=== PATIENT | female | born 1980 | race Caucasian/White ===

== ENCOUNTER 2018-08-27 22:01 | Emergency (ER) | payer OTHER ==
[~2018-08-27] VITALS: Ht 162.6 cm; Wt 72.6 kg
[~2018-08-27 22:01] MED LIST: AMOX500 PO; FERR160; FLUO20 PO; HYDACE5 PO; IBUP800 PO; LAMO25 PO; META400 PO; MULVITMINE; OMEP20ER; OTC AZO; OXYACE5T PO; PRED20 PO; PROP80ER PO; RXHYDACE PO; SERT50; VIIBRYD PO
[2018-08-27] MEDS ORDERED: KETO10 PO (23:44)
== END 2018-08-27 23:53 | disposition home or self-care (01) ==
LOC: ER 22:01
DX: S63.602A Unspecified sprain of left thumb, initial encounter (principal); X50.9XXA Other and unspecified overexertion or strenuous movements or postures, initial encounter; Z88.8 Allergy status to other drugs, medicaments and biological substances
CPT/HCPCS: 73140; 99283-25

== ENCOUNTER 2018-11-09 13:42 | Day surgery (SDC) | payer OTHER ==
[~2018-11-09] VITALS: Ht 162.6 cm; Wt 75.3 kg
[~2018-11-09 13:42] MED LIST changes: +KETO10 PO
--- NOTE | 2018-11-09 14:45 | NUR ---
11/09/18 1445 Shelby Machado UNABLE TO DRAW PRP IN PREOP. OR STAFF WILL ATTEMPT TO DRAW THE PRP IN THE OR.
--- NOTE | 2018-11-09 17:11 | NUR ---
11/09/18 1711 Zurdo Krishnan PT RESTING IN RECLINER, CHATTING WITH FAMILY MEMBER AT BEDSIDE. PT STATES SHE HAS 7/10 PAIN AT OPSITE. PT STATES SHE HAS A "HIGH TOLERANCE FOR PAIN MEDICATIONS." SEE VITALS FOR MEDICATION ADMINSTRATION PER ORDER FOR PAIN.
== END 2018-11-09 17:50 | disposition home or self-care (01) ==
LOC: ORSCSDS 13:42
PROVIDERS: Orthopaedic Surgery
PROC: 0RCL4ZZ Extirpation of Matter from Right Elbow Joint, Percutaneous Endoscopic Approach (ICD-10-PCS; principal; 2018-11-09 15:00)
DX: S52.044A Nondisplaced fracture of coronoid process of right ulna, initial encounter for closed fracture (principal); M65.9 Synovitis and tenosynovitis, unspecified
CPT/HCPCS: A9270-GY; J0171; J0690; J1100; J1885; J2250; J2405; J2704; J2710; J2795; J3010; J7120

== ENCOUNTER 2019-08-02 19:54 | Emergency (ER) | payer OTHER ==
[~2019-08-02] VITALS: Ht 162.6 cm; Wt 69.4 kg
[2019-08-02] MEDS ORDERED: BUPR150ER PO (20:02)
[2019-08-02 20:22] LABS: BASOPHILS ABSOLUTE AUTO 0.11 K/mm3 (0.00-0.23); BASOPHILS PERCENT AUTO 1 % (0-2); EOSINOPHILS ABSOLUTE AUTO 0.28 K/mm3 (0.00-0.68); EOSINOPHILS PERCENT AUTO 4 % (0-6); Hematocrit 40.4 % (33.0-51.0); Hemoglobin 13.2 g/dL (11.5-16.0); IMMATURE GRAN ABSOLUTE AUTO 0.02 K/mm3 (0.00-0.10); IMMATURE GRAN PERCENT AUTO 0 % (0-1); LYMPHOCYTES ABSOLUTE AUTO 2.93 K/mm3 (0.84-5.20); LYMPHOCYTES PERCENT AUTO 36 % (21-46); MONOCYTES ABSOLUTE AUTO 0.52 K/mm3 (0.16-1.47); MONOCYTES PERCENT AUTO 6 % (4-13); Mean Corpuscular HGB 32.8 pg (26.0-34.0); Mean Corpuscular HGB Conc 32.7 g/dL (31.5-36.5); Mean Corpuscular Volume 100 fL (80-100); Mean Platelet Volume 9.5 fL (9.1-12.4); NEUTROPHILS ABSOLUTE AUTO 4.24 K/mm3 (1.96-9.15); NEUTROPHILS PERCENT AUTO 52 % (41-73); Platelet Count 309 K/mm3 (150-400); RDW Coefficient Variation 11.9 % (11.7-14.2); RDW Standard Deviation 44.7 fL (35.1-46.3); Red Blood Cell Count 4.03 M/mm3 (3.80-5.20)
[2019-08-02 20:43] LABS: Alanine Aminotransfer (ALT/SGP 27 U/L (12-78); Albumin, Blood 4.2 g/dL (3.4-5.0); Albumin/Globulin Ratio 1.3 (0.8-1.8); Alk Phos 60 U/L (50-136); Anion Gap 7 mmol/L (6-16); Aspartate Aminotrans (AST/SGOT 19 U/L (12-37); Bilirubin, Total 0.4 mg/dL (0.1-1.0); Blood Urea Nitrogen 16 mg/dL (8-24); Bun/Creatinine Ratio 14.5 (12.0-20.0); CO2, Blood 27 mmol/L (21-32); Calcium, Blood 8.9 mg/dL (8.5-10.1); Chloride, Blood 105 mmol/L (98-108); Globulin, Blood 3.3 g/dL (2.2-4.0); Glomerular Filtration Rate 59 (60-); Glucose, Blood 113 mg/dL (70-99); Potassium, Blood 3.8 mmol/L (3.5-5.5); Sodium, Blood 139 mmol/L (136-145); Total Protein, Blood 7.5 g/dL (6.4-8.2); Troponin I <0.015 ng/mL (0.000-0.040)
== END 2019-08-03 00:44 | disposition home or self-care (01) ==
LOC: ER 19:54
PROVIDERS: Physician Assistant
DX: R07.2 Precordial pain (principal); M41.9 Scoliosis, unspecified; G43.909 Migraine, unspecified, not intractable, without status migrainosus; M54.9 Dorsalgia, unspecified; Z87.442 Personal history of urinary calculi; Z88.8 Allergy status to other drugs, medicaments and biological substances
CPT/HCPCS: 36415; 71046; 80053; 84484; 85025; 85379; 93005; 93010; 96374; 99284-25; J1885

== ENCOUNTER 2021-02-24 20:35 | Emergency (ER) | payer OTHER ==
[~2021-02-24] VITALS: Ht 162.6 cm; Wt 79.4 kg
[~2021-02-24 20:35] MED LIST changes: +BUPR150ER PO; +BUPROPION XL150 M1 PO; +CALCIUM 500 MG1 EACH; +CLON.5; +DHEA 10 MG TAB1 EAC1; +FURO20 PO; +IMITREX100 MG PO; +Klor-Con 1010 MEQ PO
[2021-02-24] MEDS ORDERED: PRED20 PO (22:26)
== END 2021-02-24 22:37 | disposition home or self-care (01) ==
LOC: ER 20:35
DX: M48.061 Spinal stenosis, lumbar region without neurogenic claudication (principal); G62.9 Polyneuropathy, unspecified; Z88.8 Allergy status to other drugs, medicaments and biological substances
CPT/HCPCS: 99283; J7512

== ENCOUNTER 2024-11-04 09:53 | Day surgery (SDC) | payer OTHER ==
[~2024-11-04] VITALS: Ht 162.6 cm; Wt 74.3 kg
[~2024-11-04 09:53] MED LIST changes: +ACET325 PO; +Bupivacaine 0.5% HCl 5 MG/ML 30MLVIAL ONE; +Clonazepam1 M1 PO; +Dexamethasone Sod Phos 10 MG/ML 1ML VIAL ONE; +IBUP200; +Lactated Ringer's 1,000 ML IV ONE; +Percocet 10-321 EACH PO
[2024-11-04] MEDS ORDERED: propofoL 20 ML IV ONE (10:14)
[2024-11-04] MEDS ORDERED: FentaNYL Citrate 50 MCG/ML 2 ML Injection ONE (10:14)
[2024-11-04] MEDS ORDERED: Midazolam HCl 1MG / ML 2ML Vial ONE (10:14)
[2024-11-04] MEDS ORDERED: ESCI10 PO (10:18)
[2024-11-04] MEDS ORDERED: ZOLP5 PO (10:19)
[2024-11-04] MEDS ORDERED: ALPRAZOLAM110 PO (10:20)
[2024-11-04] MEDS ORDERED: ALPR1 PO (10:20)
[2024-11-04] MEDS ORDERED: IMITREX100 MG (10:21)
[2024-11-04] MEDS ORDERED: OXYCODONE-ACET1 EAC2 (10:21)
[2024-11-04] MEDS ORDERED: CeFAZolin Sodium 2,000 MG VIAL ONE (10:28)
[2024-11-04] MEDS ORDERED: SEMAGLUTID0.25 MG/0. SQ (10:32)
[2024-11-04] MEDS ORDERED: Lactated Ringer's 1,000 ML IV ONE (10:33)
[2024-11-04] MEDS ORDERED: Bupivacaine 0.5% W/EPI 1:200000 SDV 30 ML Vial ONE (10:36)
--- NOTE | 2024-11-04 10:44 | NUR ---
11/04/24 1044 Toshia Rodas PATIENT TAKES OZEMPIC FOR WEIGHT LOSS NOT DIABETES
[2024-11-04] MEDS ORDERED: HYDROmorphone HCl/Pf 1MG SYR ONE (11:18)
[2024-11-04] MEDS ORDERED: OxyCODONE HCL 5 MG TAB ONE (12:20)
[2024-11-04 12:30] VITALS: BP 114/71
--- NOTE | 2024-11-04 12:32 | NUR ---
11/04/24 1232 MELINDA CHAVEZ TOLERATED APPLE SAUCE AND H20 PRIOR TO PAIN PILL
== END 2024-11-04 12:49 | disposition home or self-care (01) ==
LOC: ORSCSDS 09:53
PROVIDERS: Podiatrist Foot & Ankle Surgery
PROC: 0QBH0ZX Excision of Left Tibia, Open Approach, Diagnostic (ICD-10-PCS; principal; 2024-11-04 11:15)
PROC: 0JH Subcutaneous Tissue and Fascia, Insertion (ICD-10-PCS; principal; 2024-11-04 11:15)
DX: M85.462 Solitary bone cyst, left tibia and fibula (principal); Z79.85 Long-term (current) use of injectable non-insulin antidiabetic drugs; E66.9 Obesity, unspecified; Z68.28 Body mass index [BMI] 28.0-28.9, adult
CPT/HCPCS: 27638; 0707T; A9270; C1713; J0690; J1100; J1171; J2250; J2704; J3010; J7120

== ENCOUNTER 2025-01-27 11:45 | Day surgery (SDC) | payer OTHER ==
[~2025-01-27] VITALS: Ht 162.6 cm; Wt 71.3 kg
[~2025-01-27 11:45] MED LIST changes: +ALPR1 PO; +ALPRAZOLAM110 PO; -Bupivacaine 0.5% HCl 5 MG/ML 30MLVIAL ONE; +Bupivacaine 0.5% W/EPI 1:200000 SDV 30 ML Vial ONE; -Dexamethasone Sod Phos 10 MG/ML 1ML VIAL ONE; +ESCI10 PO; +IMITREX100 MG; -Lactated Ringer's 1,000 ML IV ONE; +OXYCODONE-ACET1 EAC2; +SEMAGLUTID0.25 MG/0. SQ; +ZOLP5 PO
[2025-01-27] MEDS ORDERED: CeFAZolin Sodium 2,000 MG VIAL ONE (12:07)
[2025-01-27] MEDS ORDERED: Ketorolac Tromethamine 30mg Vial ONE ×2 (13:43→14:54)
[2025-01-27] MEDS ORDERED: Dexamethasone Sod Phos 10 MG/ML 1ML VIAL ONE (13:43)
[2025-01-27] MEDS ORDERED: Metoclopramide HCl 5MG / ML 2ML Vial ONE (13:43)
[2025-01-27] MEDS ORDERED: Ondansetron HCl 2 MG / ML 2ML Vial ONE (13:43)
[2025-01-27] MEDS ORDERED: HYDROmorphone HCl/Pf 1MG SYR ONE (14:33)
--- NOTE | 2025-01-27 14:36 | NUR ---
01/27/25 1436 Gayla Chairez 1000MG TYLENOL GIVEN PO PER DR JACOB'S ORDERS PRIOR TO GOING TO THE OR WITH 1 OZ WATER.
--- NOTE | 2025-01-27 14:47 | NUR ---
01/27/25 1447 [facility] NO SPECIMEN SENT PER DR NATION.
--- NOTE | 2025-01-27 15:18 | NUR ---
01/27/[address] AT BEDSIDE, [place] TO [place] W/ SBP IN 90S
--- NOTE | 2025-01-27 16:23 | NUR ---
01/27/25 1623 Sloane Euceda PT REC'D VOICEMAIL FROM PHARMACY, UNABLE TO FILL RX. PHONE CALL TO DR. NATION, DR. NATION TO CALL [facility] TO ORDER DIFFERENT RX. OBTAINED PERMISSION FROM DR. NATION TO PERMIT PT TO TAKE IBUPROFEN AT HOME, NO BONE INVOLVEMENT IN THIS SURGERY
[2025-01-27 16:27] VITALS: BP 112/70
== END 2025-01-27 16:23 | disposition home or self-care (01) ==
LOC: ORSCSDS 11:45
PROVIDERS: Podiatrist Foot & Ankle Surgery
PROC: 01BG0ZZ Excision of Tibial Nerve, Open Approach (ICD-10-PCS; principal; 2025-01-27 14:00)
DX: G57.62 Lesion of plantar nerve, left lower limb (principal); Z79.85 Long-term (current) use of injectable non-insulin antidiabetic drugs; Z79.899 Other long term (current) drug therapy
CPT/HCPCS: A6253; A9270; J0690; J1100; J1171; J1885; J2405; J2704; J2765